=== PATIENT | male | born 1955 | race Caucasian/White ===

== ENCOUNTER 2016-09-01 06:46 | Inpatient (IN) | payer MEDICAID, OTHER ==
[~2016-09-01] VITALS: Ht 175.3 cm; Wt 111.0 kg
[2016-09-01] MEDS ORDERED: MORPHINE SULFATE 4 MG/ML SYRG IV ONE (07:45)
[2016-09-01] MEDS ORDERED: ONDANSETRON HCL 4 MG/2 ML VIAL IV ONE (07:45)
[2016-09-01 08:35] LABS: Hematocrit 39.4 % (41.0-53.0); Hemoglobin 13.5 g/dL (13.5-17.5); Mean Corpuscular Hemoglobin 30.2 pg (28.0-32.0); Mean Corpuscular Hgb Conc. 34.2 g/dL (32.0-36.0); Mean Corpuscular Volume 88.3 fL (80.0-100.0); Mean Platelet Volume 8.7 fL (7.4-10.4); Platelet Count (auto) 321 10^3/uL (140-450); Red Cell Distribution Width 13.5 % (11.6-16.0); SUSPECT VIEW TRANSMISSION; White Blood Cell 26.4 10^3/uL (4.4-10.8)
[2016-09-01 08:41] LABS: Metamyelocytes % 0; Myelocytes % 0; Promyelocytes % 0; Reactive Lymphocytes 0
[2016-09-01 08:48] LABS: BUN/Creatinine Ratio 13.4; Bilirubin, Total 0.9 mg/dL (0.2-1.0); Calcium 9.4 mg/dL (8.5-10.1); Magnesium 2.2 mg/dL (1.6-2.6); Potassium 4.2 mmol/L (3.5-5.1); Total Protein 7.6 g/dL (6.4-8.2)
[2016-09-01] MEDS ORDERED: SODIUM CHLORIDE 0.9% 250 ML IV ONE (09:11)
[2016-09-01] MEDS ORDERED: SODIUM CHLORIDE 0.9% 1,000 ML IV ONE (09:11)
[2016-09-01] MEDS ORDERED: cefTRIAXone 1GM/50ML D5W 50 ML IV ONE (09:15)
[2016-09-01 09:25] LABS: Platelet Estimate Adequate
[2016-09-01 09:26] LABS: RBC Morphology Normal
[2016-09-01] MEDS ORDERED: KETOROLAC TROMETH 30 MG/ML 1ML VIAL IV ONE (09:45)
[2016-09-01] MEDS ORDERED: PIPERACILLIN-TAZOB 3.375GM 100 ML IV ONE (10:00)
[2016-09-01] MEDS ORDERED: ACETAMINOPHEN 500 MG TAB PO PRN (10:00)
[2016-09-01] MEDS ORDERED: LORazepam 0.5 MG TAB PO PRN (10:00)
[2016-09-01] MEDS ORDERED: DEXTROSE (50%) 50ML SYRG IV PRN (10:00)
[2016-09-01] MEDS ORDERED: OSELTAMIVIR 75 MG CAP PO ONE (10:00)
[2016-09-01] MEDS ORDERED: PROMETHAZINE HCL 25 MG/ML 1ML IV PRN (10:00)
[2016-09-01] MEDS ORDERED: NITROGLYCERIN 0.4 MG SL TAB SL PRN (10:00)
[2016-09-01] MEDS ORDERED: MORPHINE SULF INJ 2 MG/ML SYRINGE 1ML IV PRN (10:00)
[2016-09-01] MEDS ORDERED: ALBUTEROL SULF 2.5 MG/0.5ML(0.5%) NEB SOLN NEB PRN (10:00)
[2016-09-01] MEDS ORDERED: LACTULOSE 20Gm/30ML SOLN PO PRN (10:00)
[2016-09-01] MEDS ORDERED: VANCOMYCIN PER PHARMACY 0 MG IV SCH (10:00)
[2016-09-01] MEDS: FAMOTIDINE (10MG/ML) 2ML VL IV SCH ×2 (10:54→21:37)
[2016-09-01] MEDS: OSELTAMIVIR 75 MG CAP PO SCH ×2 (10:54→21:37)
[2016-09-01] MEDS: ENOXAPARIN SOD 40 MG/0.4 ML SYRINGE SC SCH (10:54)
[2016-09-01] MEDS ORDERED: VANCOMYCIN 1GM/250ML D5W 250 ML IV ONE (11:30)
[2016-09-01] MEDS: ACCU-CHEK COMFORT CURVE STRIP VI SCH ×3 (12:00→22:22)
[2016-09-01] MEDS: AZITHROMYCIN 500MG/D5W 250ML 250 ML IV SCH (12:54)
[2016-09-01] MEDS: SODIUM CHLORIDE 0.9% 1,000 ML IV SCH ×2 (12:54→19:50)
[2016-09-01] MEDS: ALBUTEROL SULF 2.5 MG/0.5ML(0.5%) NEB SOLN NEB SCH ×2 (13:10→18:00)
[2016-09-01] MEDS: IPRATROPIUM BROM 0.5 MG/2.5ML INH SOL NEB SCH ×2 (13:10→18:00)
[2016-09-01] MEDS ORDERED: VANCOMYCIN 1,250 MG in D5W 5% 250 ML IV SCH (14:00)
[2016-09-01] MEDS: HYDROcodone-ACET 5/325MG TAB PO PRN ×2 (15:57→21:56)
[2016-09-01] MEDS: PIPERACILLIN-TAZOB 3.375GM 100 ML IV SCH ×2 (16:00→21:38)
[2016-09-01] MEDS: VANCOMYCIN 1,250 MG in D5W 5% 250 ML IV SCH (18:00)
[2016-09-01] MEDS: MORPHINE SULF INJ 2 MG/ML SYRINGE 1ML IV PRN (18:48)
[2016-09-01 21:15] VITALS: BP 112/57
[2016-09-01 22:02] LABS: Urine RBC None Seen /hpf (0 - 3)
[2016-09-01 22:37] LABS: Urine Bilirubin Negative (Negative); Urine Blood Negative /uL (Negative); Urine Color Yellow (Yellow); Urine Glucose Normal (Normal); Urine Hyaline Cast FEW /lpf (0 - 2); Urine Ketone Negative (Negative); Urine Mucus FEW (None Seen); Urine Nitrite Negative (Negative); Urine pH 5.5 (5.0-8.0)
[2016-09-02] VITALS (7 sets, daily range): BP systolic 101–118; BP diastolic 57–68
[2016-09-02] MEDS: SODIUM CHLORIDE 0.9% 1,000 ML IV SCH ×3 (01:00→18:21)
[2016-09-02] MEDS: MORPHINE SULF INJ 2 MG/ML SYRINGE 1ML IV PRN ×3 (01:00→19:53)
[2016-09-02] MEDS: ALBUTEROL SULF 2.5 MG/0.5ML(0.5%) NEB SOLN NEB SCH ×4 (01:11→18:28)
[2016-09-02] MEDS: IPRATROPIUM BROM 0.5 MG/2.5ML INH SOL NEB SCH ×4 (01:11→18:28)
[2016-09-02] MEDS ORDERED: TRAM50TA2 PO (01:13)
[2016-09-02] MEDS ORDERED: ZOLP10TA PO (01:13)
[2016-09-02] MEDS ORDERED: LISI-646 PO (01:13)
[2016-09-02] MEDS ORDERED: SIMV-8 PO (01:13)
[2016-09-02] MEDS ORDERED: METH-171 PO (01:13)
[2016-09-02] MEDS ORDERED: PERCOT PO (01:13)
[2016-09-02] MEDS: TEMAZEPAM 15 MG CAP PO PRN ×2 (01:48→23:52)
[2016-09-02] MEDS: PIPERACILLIN-TAZOB 3.375GM 100 ML IV SCH ×2 (03:48→09:13)
[2016-09-02] MEDS: VANCOMYCIN 1,250 MG in D5W 5% 250 ML IV SCH (05:41)
[2016-09-02] MEDS: ACCU-CHEK COMFORT CURVE STRIP VI SCH ×4 (05:42→22:19)
[2016-09-02 06:29] LABS: Basophils # (auto) 0 uL; Basophils % (auto) 0.1 % (0.0-2.0); Eosinophils # (auto) 0.1 uL; Eosinophils % (auto) 0.9 % (0.0-7.0); Hematocrit 33.3 % (41.0-53.0); Hemoglobin 11.2 g/dL (13.5-17.5); Lymphocytes # (auto) 1.4 uL; Lymphocytes % (auto) 8.2 % (10.0-50.0); Mean Corpuscular Hemoglobin 30.2 pg (28.0-32.0); Mean Corpuscular Hgb Conc. 33.6 g/dL (32.0-36.0); Mean Corpuscular Volume 89.7 fL (80.0-100.0); Mean Platelet Volume 8.1 fL (7.4-10.4); Monocytes # (auto) 1.2 uL; Monocytes % (auto) 6.9 % (0.0-12.0); Neutrophils # (auto) 14.1 uL; Neutrophils % (auto) 83.9 % (37.0-80.0); Platelet Count (auto) 295 10^3/uL (140-450); Red Cell Distribution Width 13.2 % (11.6-16.0); White Blood Cell 16.8 10^3/uL (4.4-10.8)
[2016-09-02 06:42] LABS: Potassium 4.3 mmol/L (3.5-5.1)
[2016-09-02 06:53] LABS: Albumin 2.3 g/dL (3.4-5.0); BUN/Creatinine Ratio 11.9; Calcium 8.3 mg/dL (8.5-10.1)
[2016-09-02 06:55] LABS: Bilirubin, Total 0.5 mg/dL (0.2-1.0); Total Protein 6.5 g/dL (6.4-8.2)
[2016-09-02] MEDS: ENOXAPARIN SOD 40 MG/0.4 ML SYRINGE SC SCH (09:13)
[2016-09-02] MEDS: FAMOTIDINE (10MG/ML) 2ML VL IV SCH ×2 (09:13→21:54)
[2016-09-02] MEDS: HYDROcodone-ACET 5/325MG TAB PO PRN ×2 (09:14→15:54)
[2016-09-02] MEDS: OSELTAMIVIR 75 MG CAP PO SCH ×2 (09:19→21:54)
[2016-09-02] MEDS: AZITHROMYCIN 500MG/D5W 250ML 250 ML IV SCH (12:13)
[2016-09-02] MEDS: CEFTRIAXONE SODIUM 2 GM in D5W 5% 50 ML IV SCH (15:55)
[2016-09-03] VITALS (7 sets, daily range): BP systolic 112–133; BP diastolic 60–82
[2016-09-03] MEDS: ALBUTEROL SULF 2.5 MG/0.5ML(0.5%) NEB SOLN NEB SCH ×3 (00:25→12:50)
[2016-09-03] MEDS: IPRATROPIUM BROM 0.5 MG/2.5ML INH SOL NEB SCH ×3 (00:25→12:50)
[2016-09-03] MEDS: SODIUM CHLORIDE 0.9% 1,000 ML IV SCH ×2 (02:01→16:05)
[2016-09-03] MEDS: MORPHINE SULF INJ 2 MG/ML SYRINGE 1ML IV PRN ×3 (03:18→22:03)
[2016-09-03 05:19] LABS: Basophils # (auto) 0 uL; Eosinophils # (auto) 0.3 uL; Eosinophils % (auto) 2.2 % (0.0-7.0); Hematocrit 33.7 % (41.0-53.0); Hemoglobin 11.3 g/dL (13.5-17.5); Lymphocytes % (auto) 7.8 % (10.0-50.0); Mean Corpuscular Hgb Conc. 33.6 g/dL (32.0-36.0); Mean Corpuscular Volume 89.3 fL (80.0-100.0); Mean Platelet Volume 7.9 fL (7.4-10.4); Monocytes # (auto) 0.7 uL; Monocytes % (auto) 5.6 % (0.0-12.0); Neutrophils # (auto) 10.7 uL; Neutrophils % (auto) 84.4 % (37.0-80.0); Platelet Count (auto) 354 10^3/uL (140-450); Red Cell Distribution Width 13.6 % (11.6-16.0); White Blood Cell 12.7 10^3/uL (4.4-10.8)
[2016-09-03 05:35] LABS: Calcium 8.5 mg/dL (8.5-10.1); Potassium 3.7 mmol/L (3.5-5.1)
[2016-09-03] MEDS: ACCU-CHEK COMFORT CURVE STRIP VI SCH ×3 (05:59→17:45)
[2016-09-03] MEDS: HYDROcodone-ACET 5/325MG TAB PO PRN ×3 (07:54→20:02)
[2016-09-03] MEDS: FAMOTIDINE (10MG/ML) 2ML VL IV SCH ×2 (08:18→21:58)
[2016-09-03] MEDS: CEFTRIAXONE SODIUM 2 GM in D5W 5% 50 ML IV SCH (08:19)
[2016-09-03] MEDS: ENOXAPARIN SOD 40 MG/0.4 ML SYRINGE SC SCH (08:31)
[2016-09-03] MEDS: OSELTAMIVIR 75 MG CAP PO SCH (08:35)
[2016-09-03] MEDS: AZITHROMYCIN 500MG/D5W 250ML 250 ML IV SCH (10:28)
[2016-09-03] MEDS: TEMAZEPAM 15 MG CAP PO PRN (21:58)
[2016-09-04] VITALS (7 sets, daily range): BP systolic 118–138; BP diastolic 67–87
[2016-09-04] MEDS: ACCU-CHEK COMFORT CURVE STRIP VI SCH ×5 (00:17→23:55)
[2016-09-04] MEDS: SODIUM CHLORIDE 0.9% 1,000 ML IV SCH ×3 (00:18→18:00)
[2016-09-04] MEDS: ALBUTEROL SULF 2.5 MG/0.5ML(0.5%) NEB SOLN NEB SCH ×4 (00:20→19:41)
[2016-09-04] MEDS: IPRATROPIUM BROM 0.5 MG/2.5ML INH SOL NEB SCH ×4 (00:20→19:41)
[2016-09-04] MEDS: FAMOTIDINE (10MG/ML) 2ML VL IV SCH ×2 (08:41→21:28)
[2016-09-04] MEDS: ENOXAPARIN SOD 40 MG/0.4 ML SYRINGE SC SCH (08:41)
[2016-09-04] MEDS: CEFTRIAXONE SODIUM 2 GM in D5W 5% 50 ML IV SCH (08:41)
[2016-09-04] MEDS: AZITHROMYCIN 500MG/D5W 250ML 250 ML IV SCH (11:25)
[2016-09-04] MEDS: MORPHINE SULFATE 4 MG/ML SYRG IV PRN (17:31)
[2016-09-04] MEDS: TEMAZEPAM 15 MG CAP PO PRN (20:55)
[2016-09-04] MEDS: HYDROcodone-ACET 10/325MG TAB PO PRN (20:55)
[2016-09-05] MEDS: ALBUTEROL SULF 2.5 MG/0.5ML(0.5%) NEB SOLN NEB SCH ×3 (01:01→13:17)
[2016-09-05] MEDS: IPRATROPIUM BROM 0.5 MG/2.5ML INH SOL NEB SCH ×3 (01:01→13:17)
[2016-09-05] MEDS: SODIUM CHLORIDE 0.9% 1,000 ML IV SCH (03:28)
[2016-09-05 05:00] VITALS: BP 117/73
[2016-09-05] MEDS: MORPHINE SULFATE 4 MG/ML SYRG IV PRN (05:13)
[2016-09-05] MEDS: ACCU-CHEK COMFORT CURVE STRIP VI SCH ×2 (06:01→11:26)
[2016-09-05 06:26] LABS: Basophils # (auto) 0 uL; Basophils % (auto) 0.3 % (0.0-2.0); Eosinophils # (auto) 0.4 uL; Eosinophils % (auto) 3.1 % (0.0-7.0); Hematocrit 35.7 % (41.0-53.0); Lymphocytes # (auto) 1.5 uL; Lymphocytes % (auto) 12.4 % (10.0-50.0); Mean Corpuscular Hgb Conc. 33.7 g/dL (32.0-36.0); Mean Corpuscular Volume 89.1 fL (80.0-100.0); Mean Platelet Volume 8.1 fL (7.4-10.4); Monocytes # (auto) 0.6 uL; Monocytes % (auto) 5.4 % (0.0-12.0); Neutrophils # (auto) 9.3 uL; Neutrophils % (auto) 78.8 % (37.0-80.0); Platelet Count (auto) 415 10^3/uL (140-450); Red Cell Distribution Width 13.2 % (11.6-16.0); White Blood Cell 11.9 10^3/uL (4.4-10.8)
[2016-09-05 08:54] VITALS: BP 133/80
[2016-09-05] MEDS: ENOXAPARIN SOD 40 MG/0.4 ML SYRINGE SC SCH (09:24)
[2016-09-05] MEDS: CEFTRIAXONE SODIUM 2 GM in D5W 5% 50 ML IV SCH (09:24)
[2016-09-05] MEDS: FAMOTIDINE (10MG/ML) 2ML VL IV SCH (09:24)
[2016-09-05] MEDS: AZITHROMYCIN 500MG/D5W 250ML 250 ML IV SCH (11:21)
[2016-09-05] MEDS: HYDROcodone-ACET 10/325MG TAB PO PRN (11:21)
[2016-09-05 11:57] VITALS: BP 131/79
== END 2016-09-05 15:27 | disposition home or self-care (01) | DRG 139 ==
LOC: ER 06:46 → TELE-EAST 06:47
PROVIDERS: ADMIT Internal Medicine; ATTEND Internal Medicine Pulmonary Disease
DX: J13 Pneumonia due to Streptococcus pneumoniae (principal); R56.9 Unspecified convulsions; E44.1 Mild protein-calorie malnutrition; N12 Tubulo-interstitial nephritis, not specified as acute or chronic; N20.0 Calculus of kidney; K57.30 Diverticulosis of large intestine without perforation or abscess without bleeding; R59.1 Generalized enlarged lymph nodes; I10 Essential (primary) hypertension; K80.20 Calculus of gallbladder without cholecystitis without obstruction; K42.9 Umbilical hernia without obstruction or gangrene; R73.9 Hyperglycemia, unspecified; Z85.72 Personal history of non-Hodgkin lymphomas; Z85.21 Personal history of malignant neoplasm of larynx; Z80.1 Family history of malignant neoplasm of trachea, bronchus and lung; Z98.890 Other specified postprocedural states; Z68.36 Body mass index [BMI] 36.0-36.9, adult
CPT/HCPCS: 36415; 71020; 71250; 74176; 76705; 80048; 80053; 81001; 82962; 83036; 83605; 83690; 83735; 85007; 85025; 85027; 87040; 87070; 87086; 87205; 87400; 93005; 94640; 96365; 96375; J0696; J1885; J2405; J2543; J3490; J7060

== ENCOUNTER 2022-01-06 11:38 | Emergency (ER) | payer OTHER, MEDICAID ==
[~2022-01-06] VITALS: Ht 175.3 cm; Wt 86.2 kg
[~2022-01-06 11:38] MED LIST: IBU600T PO; LISI20TA28 PO; METH-532 PO; PERCOT PO; SIMV-8 PO; TRAM50TA2 PO; ZOLP10TA PO
[2022-01-06] MEDS ORDERED: KETOROLAC TROMETH 60MG/2ML VIAL IM ONE (14:15)
[2022-01-06] MEDS ORDERED: TRAM-297 PO (14:21)
[2022-01-06] MEDS ORDERED: PRED20TA2 PO (14:21)
[2022-01-06 14:48] VITALS: BP 131/89
== END 2022-01-06 14:53 | disposition home or self-care (01) ==
LOC: ER 11:38
DX: M54.41 Lumbago with sciatica, right side (principal); M54.16 Radiculopathy, lumbar region; I10 Essential (primary) hypertension; Z79.1 Long term (current) use of non-steroidal anti-inflammatories (NSAID); Z79.899 Other long term (current) drug therapy
CPT/HCPCS: 73502; 96372; 99283; J1885